=== PATIENT | male | born 1985 | race Caucasian/White ===

== ENCOUNTER 2017-11-30 16:09 | Outpatient (CLI) | payer OTHER ==
--- NOTE | 2017-11-30 17:07 | Diagnostic Imaging Report ---
DEJUAN SCOTT [facility] [id number] Counts Include 234 Beds At [facility] [address] [id number] Report Submission Date: Nov 30, 2017 5:01:18 PM CDT Patient Study Name: URSULA MCDONALD Date: Nov 30, 2017 4:16:52 PM CDT Modality Type: DX Gender: M Description: LOWER EXTREMITY : 85 Institution: [facility] Physician: DEJUAN SCOTT Examination: Plain film left foot History: ACUTE LEFT FOOT PAIN HX OF FX X 15 YEARS AGO (Hx) Findings: 3 views of the left foot demonstrates normal cortical margins. Mild articular degenerative changes. No fracture or dislocation. No soft tissue swelling. No joint effusion. Impression: No acute osseous process. Electronically signed on Nov 30, 2017 5:01:18 PM CDT by: Marco A CROOKS
== END 2017-11-30 16:11 ==
LOC: RAD 16:09
PROVIDERS: ATTEND Family Medicine
DX: M79.672 Pain in left foot (principal)
CPT/HCPCS: 73630